=== PATIENT | male | born 1990 | race American Indian/Alaskan Native ===

== ENCOUNTER 2022-02-17 14:20 | Emergency (ER) | payer SELFPAY ==
[2022-02-17 15:05] VITALS: BP 120/68
[2022-02-17] MEDS ORDERED: KETOROLAC 10 MG TAB PO ONE ×2 (15:06→17:37)
[2022-02-17] MEDS ORDERED: oxyCODONE /ACETAMINOPHEN 5-325MG TAB PO ONE ×2 (15:06→17:37)
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
[2022-02-17] MEDS ORDERED: SODIUM CHLORIDE 0.9% 1000 ML 1,000 ML ONE (15:16)
--- NOTE | 2022-02-17 15:54 | XRay Report ---
XR hand 3+V RT INDICATION / CLINICAL INFORMATION: hand pain and swelling. COMPARISON: None available. FINDINGS: BONES/JOINT(S): Mildly displaced fracture of the shaft of the fifth metacarpal. There is also a chron ic appearing fracture of the base of the fifth metacarpal. SOFT TISSUES: No significant abnormality. ADDITIONAL FINDINGS: None. Signer Name: Demetrio Reed MD Signed: 02/17/2022 3:49 PM Workstation Name: [id number]
== END 2022-02-17 17:35 | disposition home or self-care (01) ==
LOC: ED 14:20
DX: S62.326A Displaced fracture of shaft of fifth metacarpal bone, right hand, initial encounter for closed fracture (principal); Z91.013 Allergy to seafood; Z79.899 Other long term (current) drug therapy; V86.95XA Unspecified occupant of 3- or 4- wheeled all-terrain vehicle (ATV) injured in nontraffic accident, initial encounter; Y93.89 Activity, other specified; Y92.488 Other paved roadways as the place of occurrence of the external cause; Y99.8 Other external cause status
CPT/HCPCS: 29125; 73130; 99284; J7030; 99283